=== PATIENT | female | born 1995 | race Caucasian/White ===

== ENCOUNTER 2018-02-07 19:32 | Emergency (ER) | payer OTHER ==
[2018-02-07 19:38] VITALS: BP 165/99
--- NOTE | 2018-02-07 19:40 | EDPHY ---
H & P Stated Complaint: Burn to L ankle, spilled hot oil Time Seen by Provider: 02/07/18 19:39 HPI/ROS: Chief Complaint: Burn to ankle HPI: The patient presents to the ED with a burn to her ankle. She spilled hot oil on her ankle at work. She presents to the ED with an erythematous blistering rash on the dorsal aspect of her foot and medial and lateral aspect of her ankle. The patient complains of moderate pain. She denies any additional burn. REVIEW OF SYSTEMS: Neuro: no headache, numbness, weakness Musculoskeletal: as above Skin: As above Source: Patient - Personal History LMP (Females 10-55): 1-7 Days Ago Current Tetanus/Diphtheria Vaccine: Yes Current Tetanus Diphtheria and Acellular Pertussis (TDAP): Yes - Medical/Surgical History Hx Asthma: No Hx Chronic Respiratory Disease: No Hx Diabetes: No Hx Cardiac Disease: No Hx Renal Disease: No Hx Cirrhosis: No Hx Alcoholism: No Hx HIV/AIDS: No Hx Splenectomy or Spleen Trauma: No Other PMH: denies - Social History Smoking Status: Never smoked - Physical Exam Exam: General Appearance: Alert, no distress Respiratory: There are no retractions, lungs are clear to auscultation Cardiovascular: Regular rate and rhythm Gastrointestinal: Abdomen is soft and nontender, no masses, bowel sounds normal Neurological: 5/5 strength noted all 4 extremities, normal sensory exam Skin: Approximately 5 % TBSA partial-thickness burn noted to the dorsal aspect of the left foot and lateral ankle with associated blistering Musculoskeletal: Normal range of motion Constitutional: Initial Vital Signs Temperature (C) 36.7 C 02/07/18 19:36 Heart Rate 83 02/07/18 19:36 Respiratory Rate 16 02/07/18 19:36 Blood Pressure 165/99 H 02/07/18 19:36 O2 Sat (%) 98 02/07/18 19:36 O2 Delivery Mode Room Air Allergies/Adverse Reactions: No Known Allergies Allergy (Verified 02/07/18 19:35) Home Medications: Medication Instructions Recorded Adderall 10 MG (RX) 05/20/13 Azithromycin [Zithromax 250 mg 250 mg PO DAILY #6 tab 07/29/14 tab(RX)] Buspar (RX) 07/29/14 Metformin HCl 07/29/14 oxyCODONE/APAP 5/325 [Percocet 1 - 2 tab PO Q6-8PRN PRN #20 tab 02/07/18 5/325 (RX)] Medical Decision Making ED Course/Re-evaluation: The patient received Percocet. She was dressed with bacitracin and gauze. Patient's tetanus shot is up-to-date. I spoke with the attending at the [facility]. The patient will contact their outpatient clinic to schedule a follow-up visit tomorrow. Differential Diagnosis: Differential diagnosis considered includes superficial burn, partial thickness burn, deep burn, compartment syndrome - Data Points Medications Given: Discontinued Medications Oxycodone/Acetaminophen (Percocet 5/325) 2 tab PO EDNOW ONE Stop: 02/07/18 19:43 Last Admin: 02/07/18 19:44 Dose: 2 tab Departure - Departure Disposition: Home, Routine, Self-Care Clinical Impression: Burn of foot, left, second degree Qualifiers: Encounter type: initial encounter Qualified Code(s): T25.222A - Burn of second degree of left foot, initial encounter Condition: Fair Instructions: Second Degree Burn (ED) Additional Instructions: 1. Please follow up at the [facility] tomorrow. Please call them at tomorrow morning to schedule a visit. 2. Take Ibuprofen or Motrin 600 mg by mouth three times a day. 3. Percocet as needed for severe pain. Referrals: Chloe Soto MD [Primary Care Provider] - As per Instructions
[2018-02-07] MEDS ORDERED: OXYCODONE/APAP 5/325 TAB PO ONE (19:42)
[2018-02-07] MEDS ORDERED: OXYCODONE/APAP 5/325 TAB ONE (19:43)
[2018-02-07] MEDS ORDERED: OXYCODONE/APAP 5/325MG PREPACK#4 BTL TAKEHOME ONE (20:14)
== END 2018-02-07 20:21 | disposition home or self-care (01) ==
PROC: 2W2MX4Z Dressing of Left Lower Extremity using Bandage (ICD-10-PCS; principal; 2018-02-07)
DX: T25.222A Burn of second degree of left foot, initial encounter (principal); T32.0 Corrosions involving less than 10% of body surface; X10.2XXA Contact with fats and cooking oils, initial encounter; Y92.89 Other specified places as the place of occurrence of the external cause; Y93.9 Activity, unspecified; Y99.9 Unspecified external cause status